=== PATIENT | male | born 1960 | race Caucasian/White ===

== ENCOUNTER 2018-12-03 17:01 | Inpatient (IN) | payer MEDICAID, OTHER ==
--- NOTE | 2018-12-03 18:36 | ED PDOC ---
HPI: Psych/Substance Abuse Time Seen by Provider: 12/03/18 18:28 Chief Complaint (Nursing): Psychiatric Evaluation Chief Complaint (Provider): Crisis Evaluation History Per: Patient History/Exam Limitations: no limitations Onset/Duration Of Symptoms: Hrs (several ) Current Symptoms Are (Timing): Still Present (Pt presents to the ED complaining of suicidal ideation for one day without a definitive plan. Pt indicates that he has been through alot lately and it is starting to gt to him-namely, the of his girlfriend from breast ca. Pt denies chronic medical conditions as well as acute medical issues) Past Medical History Reviewed: Historical Data, Nursing Documentation, Vital Signs Vital Signs: Last Vital Signs Temp 98.2 F 12/03/18 17:09 Pulse 73 12/03/18 17:09 Resp 13 12/03/18 17:09 BP 146/98 H 12/03/18 17:09 Pulse Ox 100 12/03/18 17:09 - Medical History PMH: Anxiety (Reports diagnosis of anxiety), Depression (Reports diagnosis of depression), Hypothyroidism Denies: Diabetes, Hepatitis, HIV, HTN, Seizures (Denies seizure history. Denies alcohol related seizures.), Sexually Transmitted Disease - Family History Family History: States: Unknown Family Hx - Immunization History Hx Tetanus Toxoid Vaccination: Yes Hx Influenza Vaccination: No Hx Pneumococcal Vaccination: No - Home Medications Home Medications: Ambulatory Orders Medication Instructions Recorded traZODone [Desyrel] 100 mg PO HS PRN #30 tab 09/04/18 Gabapentin [Neurontin] 400 mg PO TID #60 cap 10/23/18 Levothyroxine [Synthroid] 50 mcg PO DAILY@0630 #30 tab 10/23/18 traZODone [Desyrel] 100 mg PO HS PRN #30 tab 10/23/18 - Allergies Allergies/Adverse Reactions: Allergies Allergy/AdvReac Type Severity Reaction Status Date / Time No Known Allergies Allergy Verified 12/03/18 17:09 Review of Systems ROS Statement: Except As Marked, All Systems Reviewed And Found Negative Psych: Positive for: Suicidal ideation Physical Exam - Reviewed Nursing Documentation Reviewed: Yes Vital Signs Reviewed: Yes - Physical Exam Appears: Positive for: Well, Non-toxic, No Acute Distress. Negative for: Uncomfortable Head Exam: Positive for: ATRAUMATIC, NORMAL INSPECTION Skin: Negative for: Diaphoresis, Pallor, Rash Eye Exam: Positive for: Normal appearance, PERRL. Negative for: Nystagmus, Periorbital swelling, Periorbital tenderness - ECG O2 Sat by Pulse Oximetry: 100 Medical Decision Making Medical Decision Making: I: Crisis Eval/SI P: Crisis Eval Disposition - Clinical Impression Clinical Impression: Depression - Patient ED Disposition Is Patient to be Admitted: Transfer of Care - Disposition Disposition Time: 20:13 Condition: STABLE Forms: [facility] (Gambian)
--- NOTE | 2018-12-03 20:21 | ED PDOC ---
- Laboratory Results Result Diagrams: 12/03/18 21:53 12/03/18 21:53 - ECG O2 Sat by Pulse Oximetry: 100 Medical Decision Making Medical Decision Making: Pt endorsed to me by MYRNA Mccormick pending crisis evaluation Per washtub worker, pt to be admitted for depression as Hiram Becerril APN under Dr. Zelaya CBC, BMP, EKG, CXR, U/A ordered, urine drug screen and serum ETOH CXR read by me: no active disease EKG: sinus, HR 70, septal infarct, non-specific T wave abnormality in inferior leads. 21:00: Patient denies hx of CAD/MA or cardiac disease, admits to being a cigarette smoker and smoking cocaine. Troponin ordered. 23:59: Troponin < 0.012, U/A unremarkable. Pt is medically stable for psychiatric admission. Disposition Discussed With : Jagdish Zelaya Comment: as d/w Hiram aSntillan APN Counseled Patient/Family Regarding: Studies Performed, Diagnosis, Need For Followup - Clinical Impression Clinical Impression: Depression - POA Present On Arrival: None - Disposition Disposition: Admitted as In-Patient Disposition Time: 23:59 Condition: FAIR
[2018-12-03 21:59] LABS: BASO # 0.1 K/uL (0.0-0.2); BASO % 0.9 % (0.0-2.0); EOS # 0.1 K/uL (0.0-0.7); EOS % 1.5 % (0.0-4.0); HEMOGLOBIN 13.1 g/dL (12.0-18.0); LYMPH # 1.8 K/uL (1.0-4.3); LYMPH % 27.3 % (20.0-40.0); MEAN CORPUSCULAR HEMOGLOBIN 31.1 pg (27.0-31.0); MEAN CORPUSCULAR HGB CONC 33.8 g/dL (33.0-37.0); MEAN PLATELET VOLUME 8.3 fl (7.2-11.7); MONO # 0.6 K/uL (0.0-0.8); MONO % 8.4 % (0.0-10.0); NEUT # 4.1 K/uL (1.8-7.0); NEUT % 61.9 % (50.0-75.0); RBC 4.23 Mil/uL (4.40-5.90); RED CELL DISTRIBUTION WIDTH 14.2 % (11.5-14.5); WHITE BLOOD COUNT 6.6 K/uL (4.8-10.8)
[2018-12-03 22:09] LABS: BLOOD UREA NITROGEN 20 mg/dl (9-20); CALCIUM 9.4 mg/dL (8.4-10.2); GFR NON-AFRICAN AMERICAN 48
[2018-12-03 23:44] LABS: URINE BILIRUBIN NEGATIVE (NEGATIVE); URINE BLOOD NEGATIVE (NEGATIVE); URINE CLARITY CLEAR (Clear); URINE COLOR YELLOW (YELLOW); URINE GLUCOSE (UA) NEG (NEGATIVE); URINE LEUKOCYTE ESTERASE NEG Leu/uL (Negative); URINE PROTEIN NEGATIVE (NEGATIVE); URINE UROBILINOGEN 0.2-1.0 mg/dL (0.2-1.0)
[2018-12-04 00:13] VITALS: O2SAT 98
[2018-12-04 00:19] LABS: BARBITURATES, UR NEGATIVE (NEGATIVE); BENZODIAZEPINES, UR NEGATIVE (NEGATIVE); OPIATES, UR NEGATIVE (NEGATIVE); PHENCYCLIDINE, UR NEGATIVE (NEGATIVE)
[2018-12-04] MEDS ORDERED: DiphenhydrAMINE 50 mg/ml Inj IM PRN (00:44)
[2018-12-04] MEDS ORDERED: Alum-Mag Hydrox-Simethicone Susp (30 mL) PO PRN (00:44)
[2018-12-04] MEDS ORDERED: Magnesium Hydroxide Susp 30 ml UD PO PRN (00:44)
--- NOTE | 2018-12-04 01:11 | PCM.BM ---
<HumbertoMumtaz - Last Filed: 12/04/18 01:09> Treatment Plan Problems - Problems identified on initial assessmt Self Care Deficit Date Initiated: 12/04/18 Time Initiated: 01:12 Assessment reference: NA Status: Active Priority: 1 Altered Sleep Patterns Date Initiated: 12/04/18 Time Initiated: 01:12 Assessment reference: NA Status: Active Priority: 2 Hopelessness/Helplessness Date Initiated: 12/04/18 Time Initiated: 01:12 Assessment reference: NA Status: Active Priority: 3 Medication Nonadherence Date Initiated: 12/04/18 Time Initiated: 01:13 Assessment reference: NA Status: Active Priority: 4 Treatment assets and liabiliti Patient Assests: cooperative, self-reliant, ADL independent, physically healthy, negotiates basic needs, cognitively intact - Milieu Protocol Maintain good personal hygiene: daily Encourage regular showers, daily Remind patient to perform daily oral care, daily Assist patient to perform ADL's Conduct patient checks and document Observation sheet: Q15 minutes Maintain personal safety: every shift Educate patient to report safety concerns to staff, every shift Monitor environment for contraband/sharps Medication safety: Monitor for expected outcome, potential side effects: every shift, Assess barriers to learning: every shift, Assess readiness for medication education: every shift <Yung Park - Last Filed: 12/06/18 14:48> Family Contact Family involvement: Famliy/SO not involved Family contact: Patient declines to allow family contact at present Family contact name: Pt denied. - Goals for Treatment Patient goals for treatment: Pt offered no goals specifically pertaining to his mental health, yet asked to be referred to residential substance abuse treatment, specifically [facility]. Discharge/Continuing Care - Education Needs Education Needs: Patient Medication, Patient Diagnosis/Disease Process, Patient Coping Skills, Patient Community resources, Patient Aftercare Safety Plan - Discharge Discharge Criteria: Tolerates medication w/o severe side effects, Free of Suicidal thoughts, Free of agitation, Normal sleep pattern, Reduction of target symptoms Discharge to:: [facility], [facility] - Treatment Team Participation Patient/Family/SO Statement: 12/06/18 14:46 Pt seen in treatment team on 12/06/18. 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 Pt denied current withdrawal symptoms along with SI/HI and AVT hallucinations. Team spoke with pt regarding transfer to [facility] and the paperwork and logistics that are required. Pt offered no questions or complaints at this time. Discussed with Family/SO: No Was Patient/Family/SO present at Treatment Team Meeting: Yes
[2018-12-04] MEDS: Levothyroxine 50 MCG TAB PO SCH (08:18)
[2018-12-04] MEDS ORDERED: Pneumococcal 23-Valent Vaccine IM ONE (10:00)
--- NOTE | 2018-12-04 10:15 | RAD ---
Date of service: 12/03/2018 HISTORY: baseline COMPARISON: No prior. FINDINGS: LUNGS: The lungs are well inflated and clear. PLEURA: No pleural effusions or pneumothorax. CARDIOVASCULAR: The heart is normal in size. No aortic atherosclerotic calcifications present. OSSEOUS STRUCTURES: Within normal limits for the patient's age. VISUALIZED UPPER ABDOMEN: Normal. OTHER FINDINGS: None. IMPRESSION: No active pulmonary disease.
--- NOTE | 2018-12-04 13:24 | CP.PCM.CON ---
History of Present Illness - History of Present Illness History of Present Illness: 58 y/o M was admitted to psychiatry unit for evaluation and management of depression and suicidal ideation. Pt reports feeling well overall except for being sad, tired and weak. Pt reports not being very adherent to thyroid meds. Pt denies fever, chills, headache, dizziness, chest pain, SOB, palpitations, abdominal pain, N/V/D or urinary difficulties. Pt reports he does NOT take Gabapentin at home. NKDA Medications: Levothyroxine (unknown dose as per patient) and Trazodone. --PMHx: Hypothyroidism, depression and anxiety --PSHx: denied --FHx: unknown --SHx: smokes a lot, ~1ppd and sometimes even more, he does NOT keep a track. Positive for alcohol. Denies recreational drug use. Review of Systems - Constitutional Constitutional: absent: Chills, Fever - EENT Nose/Mouth/Throat: absent: Sinus Pain, Sinus Pressure, Sore Throat, Neck Mass - Cardiovascular Cardiovascular: absent: Chest Pain, Dyspnea, Palpitations - Respiratory Respiratory: absent: Cough, Dyspnea - Gastrointestinal Gastrointestinal: absent: Abdominal Pain, Diarrhea, Nausea, Vomiting - Genitourinary Genitourinary: absent: Dysuria, Flank Pain, Hematuria Past Patient History - Past Social History Smoking Status: Heavy Smoker > 10 Cigarettes Daily - CARDIAC Hx Hypertension: No - PULMONARY Hx Respiratory Disorders: No Hx Tuberculosis: No - NEUROLOGICAL Hx Seizures: No (Denies seizure history. Denies alcohol related seizures.) - HEENT Hx HEENT Problems: No - RENAL Hx Chronic Kidney Disease: No - ENDOCRINE/METABOLIC Hx Hypothyroidism: Yes - HEMATOLOGICAL/ONCOLOGICAL Hx Human Immunodeficiency Virus (HIV): No - INTEGUMENTARY Hx Dermatological Problems: No - MUSCULOSKELETAL/RHEUMATOLOGICAL Hx Musculoskeletal Disorders: No (.) - GASTROINTESTINAL Hx Gastrointestinal Disorders: No - GENITOURINARY/GYNECOLOGICAL Hx Sexually Transmitted Disorders: No - PSYCHIATRIC Hx Depression: Yes Hx Substance Use: Yes (COCAINE USE) - SURGICAL HISTORY Hx Surgeries: No - ANESTHESIA Hx Anesthesia: No Hx Anesthesia Reactions: No Meds Allergies/Adverse Reactions: Allergies Allergy/AdvReac Type Severity Reaction Status Date / Time No Known Allergies Allergy Verified 12/03/18 17:09 - Medications Medications: Current Medications Acetaminophen (Tylenol 325mg Tab) 650 mg PO Q4 PRN PRN Reason: Pain (4-7) Last Admin: 12/04/18 08:21 Dose: 650 mg Al Hydrox/Mg Hydrox/Simethicone (Maalox Plus 30 Ml) 30 ml PO Q4 PRN PRN Reason: Dyspepsia Diphenhydramine HCl (Benadryl) 50 mg IM Q6 PRN PRN Reason: Extrapyramidal S/S Unable PO Diphenhydramine HCl (Benadryl) 50 mg PO Q6 PRN PRN Reason: Extrapyramidal Symptoms Diphenhydramine HCl (Benadryl) 50 mg PO HS PRN PRN Reason: Sleep Gabapentin (Neurontin) 400 mg PO TID [facility] Last Admin: 12/04/18 13:21 Dose: 400 mg Haloperidol (Haldol) 5 mg PO Q4 PRN PRN Reason: Agitation Haloperidol Lactate (Haldol) 5 mg IM Q4 PRN PRN Reason: Agitation Levothyroxine Sodium (Synthroid) 50 mcg PO DAILY@0630 [facility] Last Admin: 12/04/18 08:18 Dose: 50 mcg Lorazepam (Ativan) 1 mg PO Q8 PRN PRN Reason: Anxiety/Agitation Lorazepam (Ativan) 2 mg IM Q8 PRN PRN Reason: Anxiety/Agitation Magnesium Hydroxide (Milk Of Magnesia) 30 ml PO HS PRN PRN Reason: Constipation Trazodone HCl (Desyrel) 50 mg PO HS [facility] Last Admin: 12/04/18 01:43 Dose: 50 mg Physical Exam - Constitutional Appears: Well, No Acute Distress - Head Exam Head Exam: ATRAUMATIC, NORMAL INSPECTION - Eye Exam Eye Exam: EOMI, PERRL - ENT Exam ENT Exam: Mucous Membranes Moist - Neck Exam Neck exam: Positive for: Full Rom, Normal Inspection. Negative for: Meningismus - Respiratory Exam Respiratory Exam: NORMAL BREATHING PATTERN. absent: Rales, Rhonchi, Wheezes - Cardiovascular Exam Cardiovascular Exam: REGULAR RHYTHM, +S1, +S2 - GI/Abdominal Exam GI & Abdominal Exam: Normal Bowel Sounds, Soft. absent: Distended, Guarding, Rebound, Rigid, Tenderness - Extremities Exam Extremities exam: Positive for: full ROM, normal inspection. Negative for: calf tenderness, tenderness Additional comments: Upper extremity: no tenderness, strength 5/5 b/l, SILT b/l; presence of non- tender deformity on left fifth proximal and distal inter-phalangeal joint. - Back Exam Back exam: absent: CVA tenderness (L), CVA tenderness (R) - Neurological Exam Neurological exam: Alert, Oriented x3 Results - Vital Signs Recent Vital Signs: Last Vital Signs Temp 97.6 F 12/04/18 05:50 Pulse 67 12/04/18 05:50 Resp 19 12/04/18 05:50 BP 130/84 12/04/18 05:50 Pulse Ox 98 12/04/18 00:22 - Labs Result Diagrams: 12/03/18 21:53 12/03/18 21:53 Labs: Laboratory Results - last 24 hr 12/03/18 12/03/18 12/03/18 21:53 21:53 23:11 WBC 6.6 RBC 4.23 L Hgb 13.1 Hct 38.9 MCV 92.0 MCH 31.1 H MCHC 33.8 RDW 14.2 Plt Count 239 MPV 8.3 Neut % (Auto) 61.9 Lymph % (Auto) 27.3 Bacon % (Auto) 8.4 Eos % (Auto) 1.5 Baso % (Auto) 0.9 Neut # (Auto) 4.1 Lymph # (Auto) 1.8 Bacon # (Auto) 0.6 Eos # (Auto) 0.1 Baso # (Auto) 0.1 Sodium 136 Potassium 4.3 Chloride 97 L Carbon Dioxide 30 Anion Gap 13 BUN 20 Creatinine 1.5 Est GFR ( Amer) 58 Est GFR (Non-Af Amer) 48 Random Glucose 118 H Calcium 9.4 Troponin I < 0.0120 Triglycerides Cholesterol LDL Cholesterol Direct HDL Cholesterol Thyroxine (T4) TSH 3rd Generation Urine Color Yellow Urine Clarity Clear Urine pH 7.0 Ur Specific [place] 1.019 Urine Protein Negative Urine Glucose (UA) Neg Urine Ketones Negative Urine Blood Negative Urine Nitrate Negative Urine Bilirubin Negative Urine Urobilinogen 0.2-1.0 Ur Leukocyte Esterase Neg Urine RBC (Auto) 1 Urine Microscopic WBC < 1 Urine Opiates Screen Urine Methadone Screen Ur Barbiturates Screen Ur Phencyclidine Scrn Ur Amphetamines Screen U Benzodiazepines Scrn U Oth Cocaine Metabols U Cannabinoids Screen Alcohol, Quantitative < 10 12/03/18 12/04/18 23:11 09:10 WBC RBC Hgb Hct MCV MCH MCHC RDW Plt Count MPV Neut % (Auto) Lymph % (Auto) Bacon % (Auto) Eos % (Auto) Baso % (Auto) Neut # (Auto) Lymph # (Auto) Bacon # (Auto) Eos # (Auto) Baso # (Auto) Sodium Potassium Chloride Carbon Dioxide Anion Gap BUN Creatinine Est GFR ( Amer) Est GFR (Non-Af Amer) Random Glucose Calcium Troponin I Triglycerides 96 Cholesterol 147 LDL Cholesterol Direct 61 HDL Cholesterol 70 Thyroxine (T4) 7.61 TSH 3rd Generation 7.27 H Urine Color Urine Clarity Urine pH Ur Specific [place] Urine Protein Urine Glucose (UA) Urine Ketones Urine Blood Urine Nitrate Urine Bilirubin Urine Urobilinogen Ur Leukocyte Esterase Urine RBC (Auto) Urine Microscopic WBC Urine Opiates Screen Negative Urine Methadone Screen Negative Ur Barbiturates Screen Negative Ur Phencyclidine Scrn Negative Ur Amphetamines Screen Negative U Benzodiazepines Scrn Negative U Oth Cocaine Metabols Positive H U Cannabinoids Screen Negative Alcohol, Quantitative Assessment & Plan - Assessment and Plan (Free Text) Assessment: 58 y/o M with a PMHx of hypothyroidism admitted to psychiatry unit for evaluation and management of acute depression and suicidal ideation. PLAN: >Acute Depression/Suicidal ideation --Pt is medically stable and cleared for psychiatry management. --Continue management as per psychiatry team >Hypothyroidism --C/w Levothyroxine 50mcg (Will d/c Gabapentin since pt reports not taking Gabapentin at home) Case discussed with Dr Zachary Perez PGY-2 - Date & Time Date: 12/04/18 Time: 13:30
--- NOTE | 2018-12-04 16:10 | CARD ---
APPROVED REPORT Date of service: 12/03/2018 EKG Measurement Heart [id number] <Conclusion> Normal sinus rhythm Septal infarct, age undetermined Abnormal ECG
--- NOTE | 2018-12-04 20:19 | PCM.PSYCH ---
Initial Psychiatric Evaluation - Initial Psychiatric Evaluation Chief Complaint (in patient's own words): was feeling depressed having suicidal thoughts Patient's Reaction to Hospitalization: per emergency room concrete worker notes Patient is a 58 year old year old, AA single male entering into the ED, at this time for his current mental health state. Patient reported that he has been feeling down for some time. He reported he has been having suicidal ideations for some time. He reported that he has no concrete plan but he is afraid as the urge to do something is getting greater. Patient reported that he stopped taking his medication two months ago. He reported attempting suicide back when he was younger and having to get his stomach pumped. Patient stated he was hospitalized. Patient denied any HI at this time. He denied any A/V/T. Patient reported having Hypothhyroidism. Patient denied any extensive legal hx but he did report having theft charges. Patient reported using alcohol and cocaine two days ago. Patient stated he is using illicit substances to help him cope with hi s issues. He reported having limited sleep as he has not slept in the last two days. Patient also reported that that he has not ate as he usually does. He stated he has lost 5lbs in the last month due to his hypothroidism. Patient was orientated times three and alert. Patient is requesting admission at this time. History of Present Illness and Precipitating Events: see above Current Medications: Active Medications Generic Name Dose Route Start Last Admin Trade Name Freq PRN Reason Stop Dose Admin Acetaminophen 650 mg 12/04/18 00:44 12/04/18 08:21 Tylenol 325mg Tab PO 650 mg Q4 PRN Administration Pain (4-7) Al Hydrox/Mg Hydrox/Simethicone 30 ml 12/04/18 00:44 Maalox Plus 30 Ml PO Q4 PRN Dyspepsia Diphenhydramine HCl 50 mg 12/04/18 00:44 Benadryl IM Q6 PRN Extrapyramidal S/S Unable PO Diphenhydramine HCl 50 mg 12/04/18 00:44 Benadryl PO Q6 PRN Extrapyramidal Symptoms Diphenhydramine HCl 50 mg 12/04/18 00:44 Benadryl PO HS PRN Sleep Haloperidol 5 mg 12/04/18 01:17 Haldol PO Q4 PRN Agitation Haloperidol Lactate 5 mg 12/04/18 01:17 Haldol IM Q4 PRN Agitation Levothyroxine Sodium 50 mcg 12/04/18 06:30 12/04/18 08:18 Synthroid PO 50 mcg DAILY@0630 JONEL Administration Lorazepam 1 mg 12/04/18 01:17 Ativan PO Q8 PRN Anxiety/Agitation Lorazepam 2 mg 12/04/18 01:17 Ativan IM Q8 PRN Anxiety/Agitation Magnesium Hydroxide 30 ml 12/04/18 00:44 Milk Of Magnesia PO HS PRN Constipation Trazodone HCl 50 mg 12/04/18 01:40 12/04/18 01:43 Desyrel PO 50 mg HS JONEL Administration Past Psychiatric History - Past Psychiatric History Prior Professional Help: reports this is first psychiatric admission History of ETOH/Drug Use: etoh cocaine History of Family Illness: deferred Pertinent Medical Hx (Current Medical&Sleep Prob, Allergies): Allergies Allergy/AdvReac Type Severity Reaction Status Date / Time No Known Allergies Allergy Verified 12/03/18 17:09 traZODone [Desyrel] 100 mg PO HS PRN #30 tab 09/04/18 Gabapentin [Neurontin] 400 mg PO TID #60 cap 10/23/18 Levothyroxine [Synthroid] 50 mcg PO DAILY@0630 #30 tab 10/23/18 traZODone [Desyrel] 100 mg PO HS PRN #30 tab 10/23/18 Review of Systems - Psychiatric Psychiatric: Abnormal Sleep Pattern, Depression, Suicidal Ideation Mental Status Examination - Personal Presentation Personal Presentation: Looks stated age - Affect Affect: Constricted, Depressed - Motor Activity Motor Activity: Psychomotor Agitation, Psychomotor Retardation - Reliability in Providing Information Reliability in Providing Information: Fair - Speech Speech: Organized - Mood Mood: Depressed - Formal Thought Process Formal Thought Process: No Impairment - Obsessions/Compulsions Obsessions: No Compulsions: No - Cognitive Functions Orientation: Person, Place, Situation, Time Sensorium: Alert - Risk Risk: Suicidal, Diminished functioning - Strength & Assets Inventory Strength & Assets Inventory: Cooperative (hx of substance use question of followup) DSM 5 DX - DSM 5 DSM 5 Diagnosis: substance induced mood disorder substance use cocaine active - Recommended/Plan of Treatment Treatment Recommendations and Plan of Treatment: inpt admission per attending vital signs and clinical observation per protocol and per clinical status remeron 7.5mg po hs prns per unit protocol hospitalist consult discharge planning in progress Projected ELOS: 5-7 days or per clinical status Prognosis: guarded Discharge Plan and Discharge Criteria: safety - Smoking Cessation Smoking Cessation Initiated: No Reason for not providing: pt deferred
[2018-12-05] MEDS: Levothyroxine 50 MCG TAB PO SCH (06:04)
--- NOTE | 2018-12-05 18:23 | PCM.PYCHPN ---
Psychiatric Progress Note - Psychiatric Progress Note Patient seen today, length of contact: chart reviewed case discussed with team pt seen Patient Chief Complaint: was feeling depressed having suicidal thoughts Problems Identified/Issues Discussed: alteration in mood Medical Problems: per chart Diagnostic Results: pt seen , staff report states at times is depressed , other times appears well eating asking for food increased, some groups leaves early, at times defers attending DSM 5 Symptoms Update: baseline mood Medication Change: Yes (yes increase remeron to 15mg po hs therapeutic dose) Medical Record Reviewed: Yes Consults ordered or reviewed: pt being followed by medical team Mental Status Examination - Cognitive Function Orientation: Person, Place, Situation, Time - Mood Mood: Depressed - Affect Affect: Constricted, Depressed - Formal Thought Process Formal Thought Process: No Impairment - Homicidal Ideation Homicidal Ideation: No Goal/Treatment Plan - Goal/Treatment Plan Progress Toward Problem(s) and Goals/Treatment Plan: inpt admission per attending vital signs and clinical observation per protocol and per clinical status will increase to remeron 15mg po hs therapeutic dose prns per unit protocol hospitalist consult discharge planning in progress Estimated Date of D/C: 12/08/18 - Smoking Cessation Smoking Cessation Initiated: No Reason for not providing: defers
[2018-12-06] MEDS: Levothyroxine 50 MCG TAB PO SCH (06:38)
--- NOTE | 2018-12-06 19:05 | PCM.PYCHPN ---
Psychiatric Progress Note - Psychiatric Progress Note Patient seen today, length of contact: chart reviewed case discussed with team pt seen Patient Chief Complaint: was feeling depressed having suicidal thoughts Problems Identified/Issues Discussed: alteration in mood Medical Problems: per chart Diagnostic Results: pt seen , staff report states at times is depressed , other times appears well eating asking for food increased, some groups leaves early, at times defers attending Medication Change: Yes (yes increase remeron to 15mg po hs therapeutic dose) Medical Record Reviewed: Yes Mental Status Examination - Cognitive Function Orientation: Person, Place, Situation, Time - Mood Mood: Depressed - Affect Affect: Constricted, Depressed - Formal Thought Process Formal Thought Process: No Impairment - Homicidal Ideation Homicidal Ideation: No Goal/Treatment Plan - Goal/Treatment Plan Progress Toward Problem(s) and Goals/Treatment Plan: inpt admission per attending vital signs and clinical observation per protocol and per clinical status will increase to remeron 15mg po hs therapeutic dose prns per unit protocol hospitalist consult discharge planning in progress Estimated Date of D/C: 12/08/18
[2018-12-07] MEDS: Levothyroxine 50 MCG TAB PO SCH (06:09)
[2018-12-07 06:18] VITALS: BP 122/85; PULSE 69; RESP 18; TEMP 97.1
--- NOTE | 2018-12-13 17:29 | PCM.PYCHDC ---
Mental Status Examination - Mental Status Examination Orientation: Person, Place, Situation, Time Memory: Intact Mood: Neutral Affect: Broad Speech: Appropriate Attention: WNL Concentration: WNL Association: WNL Fund of Knowledge: WNL Formal Thought Process: No Impairment Description of patient's judgement and insight: improved Psychotic Thoughts and Behaviors: denied psychosis Suicidal Ideation: No Current Homicidal Ideation?: No Discharge Summary - Discharge Note Reason for Hospitalization: Patient is a 58 year old year old, AA single male entering into the [facility] reporteded that he has been feeling down for some time. He reported he was having suicidal ideations and depression for some time since the reported of girlfriend last year. reports had not been taking his medications, has smoke "cocaine to forget". pt was admitted to [facility] on a voluntary basis. pt received on going psychiatric evaluations and medicatoins ser adjust ed according to clinical status. pt was seen by hospitalist and treated-inlcuding hypothyroidism. pt initially was in room coming out only for meals, was adherent with medications while on unit. pt was noted about unit more with progression of admission. at times watching tv with peers. pt was assessed by team pt was found to be stable and able to be discharged per attending med. pt upon day of discharge was found by staff to be somewhat irritable stated that he would follow up in the community with his doctor. team had made follow up appt.. pt received information related to [facility] mobile crisis [id number]. pt has hx of s/i attempt in past with having stomach pumped but deferred giving additional detail. review likely effects non prescribed rx on mood. review that if does not follow up pmd and does not take synthroid at risk for s/ hpothyroidism-pt verbalize understanding to team and stated he would follow up in the community. day of discharge pt did not want to wait for hospitalist to write precription-if feeling ill may go to [facility]. Consultations:: List each consultation separately and include: 1. Reason for request. 2. Findings. 3. Follow-up Consultations: pt being followed by medical team Summary of Hospital Course include:: 1. Description of specific treatment plan utilized for patients during their course of treatmen. 2. Summarize the time- course for resolution of acute symptoms and/or regressed behaviors. 3. Describe issues identified and worked on during hospitalization. 4. Describe medication utilized. 5. Describe medical problems identified and treated. 6. Reassessment of suicide risk Summary of Hospital Course: see above - Diagnosis (1) Substance induced mood disorder Status: Acute (2) Major depressive disorder, recurrent severe without psychotic features Status: Chronic Priority: Medium (3) Suicidal ideation Status: Acute Priority: Medium (4) Cocaine use disorder, severe, dependence Status: Chronic Priority: Medium (5) Drug abuse Status: Chronic Priority: Medium - Final Diagnosis (DSM 5) Condition upon Discharge: FAIR Disposition: HOME/ ROUTINE Follow-up Treatment Plan: discharge pt per attending md rx given for one month remeron 15m g (mirtazepine) po hs-review get up slowly , mouth care possible suicidal ideations -[phone] [id number] crisis plan encourage follow na follow pmd in community pt verbally agreeable to plan defers further questions Prescriptions/Medication Reconciliation: Mirtazapine [Remeron] 15 mg PO HS 30 Days #30 tablet traZODone [Desyrel] 100 mg PO HS PRN #30 tab PRN Reason: Insomnia - Smoking Cessation Smoking Cessation Medication prescribed: No Reason for not providing: pt deferred - Antipsychotic Medications Pt discharged on 2 or more routine antipsychotic medications: No
== END 2018-12-07 10:30 | disposition home or self-care (01) | DRG 747 ==
LOC: H.ER 17:01 → UNDOADMIN 22:59 → H.ERHOLD 22:59 → H.STEP 12-04 00:42
PROVIDERS: ADMIT Psychiatry & Neurology Psychiatry; ATTEND Psychiatry & Neurology Psychiatry
PROC: GZHZZZZ Group Psychotherapy (ICD-10-PCS; principal; 2018-12-03)
PROC: 3E0234Z Introduction of Serum, Toxoid and Vaccine into Muscle, Percutaneous Approach (ICD-10-PCS; 2018-12-04)
DX: F14.24 Cocaine dependence with cocaine-induced mood disorder (principal); F33.2 Major depressive disorder, recurrent severe without psychotic features; R45.851 Suicidal ideations; E03.9 Hypothyroidism, unspecified; Z79.890 Hormone replacement therapy; F17.210 Nicotine dependence, cigarettes, uncomplicated; Z23 Encounter for immunization